=== PATIENT | male | born 1950 | race Caucasian/White ===

== ENCOUNTER 2016-09-02 05:27 | Inpatient (IN) | payer OTHER ==
[2016-08-27 13:17] LABS: HEMATOCRIT 39.1 % (42.0-52.0); HEMOGLOBIN 13.1 gm/dL (14.0-18.0); MCHC 33.4 g/dL (28.0-37.0); MCV 86.9 fL (80.0-100.0); RBC 4.5 mil/uL (4.50-6.00); RDW 14.4 % (10.5-14.5); WBC 7.8 thou/uL (4.0-11.0)
[2016-08-27 13:24] LABS: ALBUMIN 4.1 g/dL (3.4-5.0); CALCIUM 9.4 mg/dL (8.5-10.1); CREATININE 1.1 mg/dL (0.7-1.3); POTASSIUM 4.9 mmol/L (3.5-5.1)
[2016-08-27 13:25] LABS: URINE BILIRUBIN NEGATIVE (Negative); URINE BLOOD NEGATIVE (Negative); URINE COLOR YELLOW; URINE GLUCOSE-RANDOM* NEGATIVE (Negative); URINE KETONES NEGATIVE (Negative); URINE LEUKOCYTES-REFLEX NEGATIVE (Negative); URINE PROTEIN (DIPSTICK) NEGATIVE (Negative); URINE UROBILINOGEN 0.2 E.U./dl (0.2-1.0)
[2016-08-27 13:31] LABS: PROTIME 10.5 Seconds (9.3-11.4)
[~2016-09-02] VITALS: Ht 177.8 cm; Wt 123.6 kg
[2016-09-02] VITALS (10 sets, daily range): BP systolic 102–126; BP diastolic 65–85
--- NOTE | ~2016-09-02 | O ---
[facility] [place] [address] OPERATIVE REPORT Name: ELOISA JANG Room #: 538-P ADM IN M.R.#: [id number] Admission: 09/02/16 Attend Phys: Fernando La MD Discharge: Date of : 52 Report #: [id number] THIS REPORT FOR: //name// CC: Leland La DATE OF SERVICE: 09/02/2016 PREOPERATIVE DIAGNOSIS: Right knee degenerative joint disease, severe. POSTOPERATIVE DIAGNOSIS: Right knee degenerative joint disease, severe. PROCEDURE: Right total knee arthroplasty. SURGEON: Fernando La MD. LPN RN: Juan Luis Nair, nurse practitioner. INDICATIONS FOR LPN RN: During the course of operation, extensive manipulation, retraction, and limb positioning was required. This was afforded to me by my maintenance assistant. ANESTHESIA: General. INDICATIONS: See hospital H and P. IMPLANTS UTILIZED: We used a DePuy PFC knee system. We used a cruciate retaining press fit femoral component of size 5, size 5 tibial tray with 10 mm insert, and a 41 mm oval dome patella. DESCRIPTION OF PROCEDURE: After adequate general anesthesia had been obtained, the patient's right lower extremity was prepped and draped in the usual meticulous sterile fashion. Limb was exsanguinated with gravity. Tourniquet was inflated to 350 torr. An anterior midline incision was made, subQ divided sharply. Hemostasis was obtained with electrocautery. Medial parapatellar incision was made. Infrapatellar fat pad excised. Medial release performed. We drilled the distal femur. This hole was enlarged, irrigated, suctioned, and the intramedullary guide placed the full length of the femur. The distal femoral cutting guide was set at 70 degrees of valgus, which matched the patient's anatomy, and it was pinned into position in the appropriate rotation, and distal femoral cut was made. We measured the femur and 5 was appropriate size. We marked the distal femur, impacted the cutting guide into position, and the anterior, posterior, and chamfer cuts were made. Rongeur was used to remove additional osteophytes. [facility] [address] [place] [address] OPERATIVE REPORT Name: JANGELOISA KARLY Room #: 538-P ADM IN M.R.#: [id number] Admission: 09/02/16 Attend Phys: Fernando La MD Discharge: Date of : 52 Report #: [id number] At this time, the ACL was transected, tibia translated anteriorly, and menisci were excised. Drill was used to drill the central portion of the tibia. This hole was enlarged, irrigated, suctioned, and the intramedullary guide placed the full length of the tibia. Proximal tibial cutting guide, placed at appropriate height. Proximal tibial cut was made. 5 tray gave us the best coverage on the tibia as well. Trial components were put in position. in position, and 10 spacer gave us the best flexion and extension gap. The patella tracked normally. We then measured the patella, cutting guide clamped into position, and patellar cut was made. A #41 template gave us the best coverage. Pedicles were drilled, trial components were put in position. It tracked normally as well. The knee was taken through several cycles of flexion and extension. The tibial tray rotation marked and distal femur drilled. Trial components were removed. The tibial keel cuts were made. We irrigated the knee with both pulse lavage and antibiotic irrigation. Bone plugs were placed in the proximal tibia and distal femur. The cement was vacuum mixed, and when it reached the appropriate consistency, the knee was thoroughly dried, the tibial tray was cemented in to place. Excess cement was removed. The polyethylene was impacted in to place, and the femur impacted in to place, and the knee was taken out to 30 degrees of flexion with uniform compression placed across the components. Patellar button was then cemented into place, and again excess cement was removed. Irrigation was placed in the wound and allowed to rest in the wound until the cement fully cured. When it had done so, the knee was irrigated, dried thoroughly, and inspected. Drains were placed superolaterally both deep and superficial. Retinacular layer closed with combination of interrupted [id number] #1 Vicryl, as well as running #1 Tevdek. SubQ closed with 2-0 Monocryl. Skin closed with bhavik. Sterile compressive dressing applied. Tourniquet deflated. <ELECTRONICALLY SIGNED> By: Fernando La MD 09/02/16 1510 [id number] Fernando La MD /nt
--- NOTE | ~2016-09-02 | HC ---
"[facility] [place] [address] CONSULTATION Name: ELOISA JANG Room #: 538-P ADM IN M.R.#: [id number] Admission: 09/02/16 Attend Phys: Fernando La MD Discharge: Date of : 52 Report #: [id number] THIS REPORT FOR: //name// CC: Leland La MD DATE OF SERVICE: 09/05/2016 SURGEON: Alex Salas M.D. REASON FOR CONSULTATION: Acoustic injury, left ear. HISTORY OF PRESENT ILLNESS: The patient is a 66-year-old gentleman who is known to me who was admitted to [facility] on 09/02/2016. The patient was brought to surgery for right knee total arthroplasty by Dr. La secondary to right knee degenerative joint disease. The night after surgery, the patient had requested the nurse through the call button. He had put the call button to his ear and the intercom was on at full volume. As a result, he suffered an injury to his left ear and over the last 48 hours has noticed significant tinnitus which is not resolved. I have been called to evaluate. The patient is well known to me from previous sleep surgery secondary to obstructive sleep apnea for which he continues on CPAP. He is status post nasal septoplasty and uvulopalatopharyngoplasty some years ago. PAST MEDICAL HISTORY: Significant for arthritis, hypertension, anxiety and depression. PAST SURGICAL HISTORY: Past history of arthroscopic knee surgery on the right, carpal tunnel surgery, bilateral hand surgery, bilateral spinal surgery, lumbar ulnar surgery on the right, tonsillectomy, left foot drop. FAMILY HISTORY: Significant for arthritis. SOCIAL HISTORY: He is , has a supportive family. He drinks about greater than 14 drinks a week, does not currently use tobacco. REVIEW OF SYSTEMS: Significant for tinnitus and decreased hearing in his left ear in addition to pain in his right knee after surgery, otherwise negative. MEDICATIONS: Contained in his MAR. ALLERGIES: MELOXICAM, SUMYCIN AND ERYTHROMYCIN. [facility] [address] [facility] [place] [address] CONSULTATION Name: ELOISA JANG KARLY Room #: 538-P [facility] IN M.R.#: [id number] Admission: 09/02/16 Attend Phys: Fernando La MD Discharge: Date of : 52 Report #: [id number] PHYSICAL EXAMINATION: GENERAL: Shows a well-developed, overweight 66-year-old male seen in his hospital room. VITAL SIGNS: Show a temperature of 99.6, pulse of 102, blood pressure 151/68. HEENT: He is normocephalic. Pupils equal, round, reactive to light. Nasal exam midline septum. Previously reduced turbinates. Otologic, normal external canal, intact tympanic membrane without perforation. Bilateral external canal osteomata. Oral cavity, status post uvulopalatopharyngoplasty, status post bilateral tonsillectomy. NECK: Midline trachea. No masses, no adenopathy. No carotid bruits. NEUROLOGIC: Cranial nerves 2 through 12 intact. Motor and sensory and cerebellar exams are otherwise normal. ASSESSMENT:| 1. Acute acoustic trauma of left tympanic membrane of 48 hours' duration. 2. Tinnitus secondary to #1. PLAN: 1. Prednisone taper beginning at 60 mg tapering by 10 mg every 3 days until off. 2. Acute follow up with me in the office post-discharge for audiogram. I have explained to the patient it is impossible for me to assess the level of the damage in the hospital without an audiogram. The patient is in full understanding. Nevertheless, I think it is important to start acute steroids if okay with Dr. La to attempt to mediate the injury. I appreciate the consultation, evaluation and his care. I will not plan to follow with you in the hospital, but I am available for any change in status. I have given the patient my card to follow up with me in the office early next week. By: 2018 0017 Alex Salas MD /nt"
--- NOTE | ~2016-09-02 | EKG ---
[address] [place] [address] ELECTROCARDIOGRAM REPORT Name: ELOISA JANG Room #: PRE IN [facility].#: [id number] Admission: Attend Phys: Fernando La MD Discharge: Date of : 52 Report #: [id number] THIS REPORT FOR: //name// [facility] Test Date: 2016-08-27 Test Time: 13:02:23 Pat Name: ELOISA JANG Department: Room: Gender: [employer] Center: [place]AMM : 1950 Requested By: Fernando La Order Number: [id number] MD: Miguel France Measurements Intervals [place] Rate: 69 P: 11 MA: 134 QRS: 10 QRSD: 117 T: 37 QT: 397 QTc: 426 Interpretive Statements Sinus rhythm Incomplete right bundle branch block Compared to ECG 06/20/1995 14:23:00 No significant changes Electronically Signed On 08-28-2016 7:47:03 CDT by Miguel France [email or web address] <ELECTRONICALLY SIGNED> By: Miguel France MD, [facility] 08/28/16 0747 1302 1302 Miguel France MD, FACC /EPI
--- NOTE | ~2016-09-02 | H ---
[facility] [address] [place] [address] HISTORY AND PHYSICAL Name: JANGELOISA KARLY Room #: 538-P ADM IN M.R.#: [id number] Admission: 09/02/16 Attend Phys: Fernando La MD Discharge: Date of : 52 Report #: [id number] THIS REPORT FOR: //name// For History and Physical, please see office documentation/handwritten note in the patient's medical record. By: 0900 Fernando La MD /
[~2016-09-02 05:27] MED LIST: ALPRAZOLAM2 MG PO; AMITRIPTYLINE H25 M2 PO; ASPIR 8181 MG PO; ATENOLOL 100MG100 MG PO; BENICAR HCT 401 EAC1 PO; BENTYL10 MG PO; CENTRUM SILVER1 EAC4 PO; CRESTOR10 MG PO; CYMBALTA60 MG PO; GLUCOSAMINE CH1 EAC7 PO; KETOROLAC 0.5% E5 ML OPHTHALMIC; KONSYL PSYLLIU3.4 GM PO; NORCO 10-325 T1 EACH PO; OMEGA-31000 M1 PO; PROBIOTIC1 EAC2 PO; TRAMADOL 50 MG50 MG PO; ZANTAC 150MG T150 MG PO
[2016-09-03 04:10] VITALS: BP 113/66
[2016-09-03 05:00] LABS: MCH 28.9 pg (26.0-34.0); MCHC 33.2 g/dL (28.0-37.0); PLATELET COUNT 177 thou/uL (150-400); RDW 14.2 % (10.5-14.5); WBC 9.4 thou/uL (4.0-11.0)
[2016-09-03 05:15] LABS: MANUAL DIFF YES
[2016-09-03 05:19] LABS: CALCIUM 8.3 mg/dL (8.5-10.1); CREATININE 1.1 mg/dL (0.7-1.3); MAGNESIUM 2.3 mg/dL (1.8-2.4); POTASSIUM 4.2 mmol/L (3.5-5.1)
[2016-09-03 07:12] LABS: ABSOLUTE NEUTROPHILS 7.7 thou/uL (1.4-8.2); ANISOCYTOSIS SLIGHT; METAMYELOCYTES 1 %; TOTAL CELL COUNT 100
[2016-09-03 07:35] VITALS: BP 108/56
[2016-09-03 14:52] VITALS: BP 108/56
[2016-09-03 15:30] VITALS: BP 100/51
[2016-09-04 03:28] VITALS: BP 108/81
[2016-09-04 03:47] VITALS: BP 155/61
[2016-09-04 05:31] LABS: HEMATOCRIT 30.5 % (42.0-52.0); HEMOGLOBIN 10.1 gm/dL (14.0-18.0); MCH 29.1 pg (26.0-34.0); MCHC 33.2 g/dL (28.0-37.0); MCV 87.6 fL (80.0-100.0); RBC 3.48 mil/uL (4.50-6.00); RDW 14.2 % (10.5-14.5)
[2016-09-04 08:27] VITALS: BP 70/42
[2016-09-04 15:18] VITALS: BP 127/69
[2016-09-04 19:15] VITALS: BP 127/73
[2016-09-05 03:24] VITALS: BP 117/61
[2016-09-05 06:24] LABS: HEMATOCRIT 28.7 % (42.0-52.0); HEMOGLOBIN 9.5 gm/dL (14.0-18.0); MCH 28.9 pg (26.0-34.0); MCHC 33.2 g/dL (28.0-37.0); MCV 87.2 fL (80.0-100.0); RBC 3.3 mil/uL (4.50-6.00); RDW 14.2 % (10.5-14.5); WBC 7.9 thou/uL (4.0-11.0)
[2016-09-05] MEDS ORDERED: MS CONTIN15 MG PO (06:45)
[2016-09-05] MEDS ORDERED: XARELTO10 MG PO (06:45)
[2016-09-05] MEDS ORDERED: PERCOCET 10-321 EACH PO (06:45)
[2016-09-05 07:52] VITALS: BP 121/58
[2016-09-05 15:35] VITALS: BP 126/63
[2016-09-05 16:47] VITALS: BP 108/56
[2016-09-05] MEDS ORDERED: PREDNISONE 10 M10 MG PO ×2 (18:55→18:56)
[2016-09-05] MEDS ORDERED: PREDNISONE 1 MG1 M1 PO (18:56)
[2016-09-05 19:45] VITALS: BP 151/68
[2016-09-06 04:49] VITALS: BP 118/58
[2016-09-06 04:57] LABS: HEMATOCRIT 27.9 % (42.0-52.0); HEMOGLOBIN 9.3 gm/dL (14.0-18.0); MCH 29.1 pg (26.0-34.0); MCHC 33.2 g/dL (28.0-37.0); MCV 87.7 fL (80.0-100.0); RBC 3.18 mil/uL (4.50-6.00); RDW 14.1 % (10.5-14.5); WBC 7.5 thou/uL (4.0-11.0)
[2016-09-06 05:16] LABS: CALCIUM 8.4 mg/dL (8.5-10.1); CREATININE 0.9 mg/dL (0.7-1.3); MAGNESIUM 2.4 mg/dL (1.8-2.4)
[2016-09-06] MEDS ORDERED: PREDNISONE 10 M10 MG PO (13:19)
[2016-09-06 19:31] VITALS: BP 108/56
== END 2016-09-06 14:30 | disposition home health service (06) | DRG 469 ==
LOC: TBA 05:27 → 5S 05:27 → PRE 09:23 → 5S 10:37 → PRE 12:03 → 5S 09-06 14:30
PROVIDERS: Nurse Practitioner; Orthopaedic Surgery
PROC: 0SRC0J9 Replacement of Right Knee Joint with Synthetic Substitute, Cemented, Open Approach (ICD-10-PCS; principal; 2016-09-02)
PROC: 5A09357 Assistance with Respiratory Ventilation, Less than 24 Consecutive Hours, Continuous Positive Airway Pressure (ICD-10-PCS; 2016-09-03)
DX: M17.11 Unilateral primary osteoarthritis, right knee (principal); J96.00 Acute respiratory failure, unspecified whether with hypoxia or hypercapnia; F11.20 Opioid dependence, uncomplicated; I10 Essential (primary) hypertension; F41.9 Anxiety disorder, unspecified; F32.9 Major depressive disorder, single episode, unspecified; G47.33 Obstructive sleep apnea (adult) (pediatric); H93.19 Tinnitus, unspecified ear; H73.92 Unspecified disorder of tympanic membrane, left ear; H83.3X2 Noise effects on left inner ear; E78.5 Hyperlipidemia, unspecified; M54.9 Dorsalgia, unspecified; G89.29 Other chronic pain; Z87.11 Personal history of peptic ulcer disease; Z79.899 Other long term (current) drug therapy; Z88.1 Allergy status to other antibiotic agents
CPT/HCPCS: 10785; 50010; 50101; 50415; 50612; 50954; 51130; 51225; 51320; 51412; 51771; 52001; 52282; 53000; 53078; 53364; 56525; 56527; 62110; 62900; 64042; 64043; 70005